=== PATIENT | male | born 1945 | race Caucasian/White ===

== ENCOUNTER 2021-02-15 08:32 | Observation (INO) ==
[2021-02-15] MEDS ORDERED: DILTIAZEM 50 MG/10 ML VIAL IV STA (08:56)
[2021-02-15 09:29] LABS: Basophils # 0.1 10*3/uL (0.0-0.2); Basophils % 0.7 % (0.0-0.8); Eosinophils # 0.1 10*3/uL (0.0-0.87); Hematocrit 44.2 VOL% (42.0-52.0); Hemoglobin 15.7 GM/DL (14.0-18.0); Immature Granulocytes % 0.3 %; Immature Granulocytes Absolute 0.03 #; Lymphocytes # 1.5 10*3/uL (1.4-4.0); Lymphocytes % 15.7 % (21.2-54.2); Mean Corpuscular HGB Conc 35.5 GM/DL (32-36); Mean Corpuscular Volume 87.4 FL (87-102); Mean Platelet Volume 10.8 FL (9.6-12.0); Monocytes % 7.6 % (1.7-12.7); Neutrophils % 74.7 % (38.7-73.9); Platelet Count 183 T/CUMM (130-400); Red Blood Count 5.06 MC/CUMM (3.8-5.5); Red Cell Distribution Width 12.3 % (9.3-17.3); White Blood Count 9.7 T/CUMM (4-12)
[2021-02-15 09:39] LABS: INR 1.1; Partial Thromboplastin Time 28.8 SECS (23.8-32.1)
[2021-02-15] MEDS: DILTIAZEM INJ 100 MG in SODIUM CHLORIDE 0.9% 100 ML IV SCH (09:40)
[2021-02-15 10:23] LABS: Albumin 3.6 G/DL (3.4-5.0); Bilirubin,Total 0.8 MG/DL (0.20-1.00); Calcium 9.8 MG/DL (8.5-10.1); Osmolality,Calculated 278.8 MOS/KG (273-304); Potassium 3.3 MMOL/L (3.5-5.1); Thyroid Stimulating Hormone 1.79 uIU/ml (0.358-3.74)
[2021-02-15] MEDS ORDERED: MAGNESIUM SULF RIDER 4 GM/100 ML PREMIX IV PRN (11:00)
[2021-02-15] MEDS ORDERED: guaiFENesin/DM ER 600-30 MG TABLET PO PRN (11:00)
[2021-02-15] MEDS ORDERED: MAGNESIUM SULF RIDER 2 GM/50 ML PREMIX IV PRN (11:00)
[2021-02-15] MEDS ORDERED: diphenhydrAMINE CAP 25 MG CAPSULE PO PRN (11:00)
[2021-02-15] MEDS ORDERED: ALUMINUM/MAGNES/SIMETH MAX STR 30 ML UDCUP PO PRN (11:00)
[2021-02-15] MEDS ORDERED: hydrALAZINE 20 MG/1 ML VIAL IV PRN (11:00)
[2021-02-15] MEDS ORDERED: PROMETHAZINE 25 MG TABLET PO PRN (11:00)
[2021-02-15] MEDS ORDERED: ACETAMINOPHEN 325 MG TABLET PO PRN (11:00)
[2021-02-15] MEDS ORDERED: NICOTINE 21 MG/24 HR PATCH TRANSDERM PRN (11:00)
[2021-02-15] MEDS ORDERED: ONDANSETRON 4 MG/2 ML VIAL IV PRN (11:00)
[2021-02-15] MEDS ORDERED: DOCUSATE SODIUM 100 MG CAPSULE PO PRN (11:00)
[2021-02-15] MEDS ORDERED: MAGNESIUM SULF RIDER 2 GM/50 ML PREMIX IV STA (11:02)
[2021-02-15] MEDS ORDERED: POTASSIUM CHLORIDE 20 MEQ TABLET PO STA (11:02)
[2021-02-15] MEDS ORDERED: NITROGLYCERIN SL 0.4 MG TABLET SL PRN (12:29)
[2021-02-15 12:30] LABS: Barbiturates Screen,Urine Negative (Negative); Benzodiazepines Screen,Urine Negative (Negative); Cannabinoid Screen,Urine Negative (Negative); Opiate Screen,Urine Negative (Negative); Phencyclidine Screen,Urine Negative (Negative)
[2021-02-15] MEDS ORDERED: DILTIAZEM CD 120 MG CAPSULE PO ONE (20:10)
[2021-02-15] MEDS ORDERED: NON-FORMULARY MEDICATION (Omeprazole 20 MG capsule,delayed release(DR/EC)) PO SCH (21:00)
[2021-02-15] MEDS ORDERED: PYRIDOXINE 100 MG TABLET PO SCH (21:00)
[2021-02-15] MEDS ORDERED: MULTIVITAMIN (OCUVITE) TABLET PO SCH (21:00)
[2021-02-15] MEDS ORDERED: ATORVASTATIN 20 MG TABLET PO SCH (21:00)
[2021-02-15] MEDS ORDERED: POTASSIUM CHLORIDE 10 MEQ TABLET PO SCH (21:00)
[2021-02-15] MEDS ORDERED: CALCIUM MAGNESIUM ZINC PO SCH (21:00)
[2021-02-15] MEDS ORDERED: CHOLECALCIFEROL 1,000 UNIT TABLET PO SCH (21:00)
[2021-02-15] MEDS ORDERED: diphenhydrAMINE CAP 25 MG CAPSULE PO SCH (21:00)
[2021-02-15] MEDS: ASCORBIC ACID 500 MG TABLET PO SCH (22:57)
[2021-02-15] MEDS: APIXABAN 5 MG TABLET PO SCH (22:57)
[2021-02-15] MEDS: FAMOTIDINE 20 MG TABLET PO SCH (22:57)
[2021-02-16 05:04] LABS: Basophils # 0.1 10*3/uL (0.0-0.2); Basophils % 0.7 % (0.0-0.8); Eosinophils # 0.2 10*3/uL (0.0-0.87); Hematocrit 43.3 VOL% (42.0-52.0); Immature Granulocytes % 0.5 %; Immature Granulocytes Absolute 0.04 #; Lymphocytes % 23.3 % (21.2-54.2); Mean Corpuscular HGB Conc 34.6 GM/DL (32-36); Mean Corpuscular Volume 88.4 FL (87-102); Mean Platelet Volume 10.8 FL (9.6-12.0); Monocytes % 8.6 % (1.7-12.7); Neutrophils % 64.9 % (38.7-73.9); Platelet Count 182 T/CUMM (130-400); Red Cell Distribution Width 12.3 % (9.3-17.3); White Blood Count 8.4 T/CUMM (4-12)
[2021-02-16 05:24] LABS: Calcium 8.7 MG/DL (8.5-10.1); Osmolality,Calculated 286.1 MOS/KG (273-304); Potassium 3.6 MMOL/L (3.5-5.1)
[2021-02-16 08:26] VITALS: BP 139/90
[2021-02-16] MEDS ORDERED: POTASSIUM CHLORIDE 10 MEQ TABLET PO ONE (08:56)
[2021-02-16] MEDS ORDERED: MAGNESIUM OXIDE 400 MG TABLET PO SCH (09:00)
[2021-02-16] MEDS ORDERED: ASPIRIN EC 81 MG TABLET PO SCH (09:00)
[2021-02-16] MEDS ORDERED: METOPROLOL SUCCINATE XL 50 MG TABLET PO SCH (09:00)
[2021-02-16] MEDS ORDERED: DILTIAZEM CD 120 MG CAPSULE PO SCH (09:00)
[2021-02-16] MEDS ORDERED: amLODIPine 5 MG TABLET PO SCH (09:00)
[2021-02-16] MEDS ORDERED: PANTOPRAZOLE 40 MG TABLET PO SCH (09:00)
[2021-02-16] MEDS ORDERED: lisinopriL 20 MG TABLET PO SCH (09:00)
[2021-02-16] MEDS: ASCORBIC ACID 500 MG TABLET PO SCH (10:40)
[2021-02-16] MEDS: APIXABAN 5 MG TABLET PO SCH (10:41)
[2021-02-16] MEDS: FAMOTIDINE 20 MG TABLET PO SCH (10:42)
[2021-02-16] MEDS: DILTIAZEM INJ 100 MG in SODIUM CHLORIDE 0.9% 100 ML IV SCH (10:43)
== END 2021-02-16 11:45 | disposition home or self-care (01) ==
LOC: N.ED 08:32 → N.EDINP 08:32 → N.TELES 19:15
PROVIDERS: ADMIT Internal Medicine Cardiovascular Disease; ATTEND Internal Medicine Cardiovascular Disease